=== PATIENT | male | born 1945 | race Caucasian/White ===

== ENCOUNTER 2021-09-27 10:33 | Emergency (ER) | payer MEDICARE, OTHER ==
[~2021-09-27 10:33] MED LIST: ADVAIR 250-501 EACH INH; ARICEPT10 MG PO; ASPIRIN 325MG325 MG PO; CARDIZEM120 MG PO; CRESTOR20 MG PO; GLUCOTROL XL 5 M5 MG PO; K-DUR TAB 10 M10 MEQ PO; LASIX 40 MG TAB40 MG PO; METOPROLOL TART25 MG PO; NEURONTIN 300300 MG PO; VENTOLIN/PROVENT2 MG PO; VITAMIN D31250 MCG PO; ZITHROMAX TRI-500 MG PO; ZOLOFT100 MG PO
[2021-09-27 12:08] LABS: HEMOGLOBIN 11.6 gm/dl (14.0-17.5); RED BLOOD COUNT 3.69 M/UL (4.20-5.50); WHITE BLOOD COUNT 13.9 K/UL (4.5-11.0)
[2021-09-27 12:36] LABS: BUN/CREATININE RATIO 23 (0-10)
== END 2021-09-27 14:40 | disposition left against medical advice (07) ==
LOC: ER1 10:33 → CDU 13:36
PROVIDERS: Nurse Practitioner
DX: S20.211A Contusion of right front wall of thorax, initial encounter (principal); J96.01 Acute respiratory failure with hypoxia; J44.0 Chronic obstructive pulmonary disease with (acute) lower respiratory infection; J18.9 Pneumonia, unspecified organism; I11.0 Hypertensive heart disease with heart failure; I50.20 Unspecified systolic (congestive) heart failure; F17.210 Nicotine dependence, cigarettes, uncomplicated; E11.9 Type 2 diabetes mellitus without complications; Z95.5 Presence of coronary angioplasty implant and graft; Z20.822 Contact with and (suspected) exposure to COVID-19; W01.10XA Fall on same level from slipping, tripping and stumbling with subsequent striking against unspecified object, initial encounter
CPT/HCPCS: 36600; 71045; 80053; 81001; 82550; 82553; 82803; 83605; 83874; 83880; 84484; 85025; 85610; 85730; 87040; 93005; 94664; 96374; 96375; 99284; J0696; J1170; J1940; J2270; J2405; J2930; U0002

== ENCOUNTER 2022-01-29 02:32 | Emergency (ER) | payer MEDICARE, OTHER ==
[~2022-01-29 02:32] MED LIST changes: -ASPIRIN 325MG325 MG PO; +ASPIRIN EC81 MG PO; +CEFDINIR300 MG PO; +CLOPIDOGREL75 MG PO; -CRESTOR20 MG PO; +CRESTOR40 MG PO; +DIGOXIN125 MCG PO; +LOPRESSOR100 MG PO; -METOPROLOL TART25 MG PO; +SOTALOL120 MG PO; +VITAMIN B-121000 MC3 PO
[2022-01-29 02:50] LABS: HEMOGLOBIN 9.4 gm/dl (14.0-17.5); RED BLOOD COUNT 3.31 M/UL (4.20-5.50); WHITE BLOOD COUNT 7.9 K/UL (4.5-11.0)
[2022-01-29] MEDS ORDERED: AMOX TR-K CLV1 EAC4 PO (04:40)
[2022-01-30 16:13] LABS: HEMATOCRIT 29.5 % (37.5-51.0)
== END 2022-01-29 05:00 | disposition home or self-care (01) ==
LOC: ER1 02:32
PROVIDERS: Family Medicine
DX: S02.121A Fracture of orbital roof, right side, initial encounter for closed fracture (principal); W01.0XXA Fall on same level from slipping, tripping and stumbling without subsequent striking against object, initial encounter; Y92.009 Unspecified place in unspecified non-institutional (private) residence as the place of occurrence of the external cause
CPT/HCPCS: 30901; 70450; 70486; 80053; 82607; 82747; 83540; 83550; 85025; 85045; 99284

== ENCOUNTER 2022-07-03 07:27 | Emergency (ER) | payer MEDICARE, OTHER ==
[~2022-07-03 07:27] MED LIST changes: +AMOX TR-K CLV1 EAC4 PO
[2022-07-03 08:22] LABS: HEMOGLOBIN 10.8 gm/dl (14.0-17.5); RED BLOOD COUNT 4.04 M/UL (4.20-5.50); WHITE BLOOD COUNT 8.7 K/UL (4.5-11.0)
[2022-07-03 08:35] LABS: BUN/CREATININE RATIO 24 (0-10)
== END 2022-07-03 10:25 | disposition home or self-care (01) ==
LOC: ER1 07:27
PROVIDERS: Emergency Medicine
DX: S01.81XA Laceration without foreign body of other part of head, initial encounter (principal); I11.9 Hypertensive heart disease without heart failure; E11.9 Type 2 diabetes mellitus without complications; F17.200 Nicotine dependence, unspecified, uncomplicated; W19.XXXA Unspecified fall, initial encounter; Y92.009 Unspecified place in unspecified non-institutional (private) residence as the place of occurrence of the external cause
CPT/HCPCS: 12013; 70450; 72125; 73060; 80053; 81001; 85025; 93005; 99284